=== PATIENT | male | born 1985 | race Caucasian/White ===

== ENCOUNTER 2023-10-22 00:11 | Inpatient (IN) | payer OTHER, SELFPAY ==
[2023-10-22 01:25] VITALS: BMI 26.1
[2023-10-22 01:28] VITALS: BP 135/88; PULSE 58; RESP 16; TEMP 36.9; O2SAT 96
[2023-10-22] MEDS: Ibuprofen 600 MG TABLET PO ×3 (02:06→19:06)
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
--- NOTE | 2023-10-22 06:36 | HE.PHANOTE ---
RE: METHADONE DOSING Patient has take away bottles, last methadone dose of 120 mg was given on 10/21/23. Clinic is [facility]. Verified by Bhavin on 10/22/23.
[2023-10-22 07:53] VITALS: BP 109/69; PULSE 55; RESP 14; TEMP 36.3; O2SAT 98
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
[2023-10-22] MEDS: Nicotine 21 MG PATCH.TD24 TRANSDERMA (09:25)
[2023-10-22] MEDS: methADONE HCl 20 MG/2 ML ORAL.CONC 120 MG PO (09:26)
[2023-10-22] MEDS: Acetaminophen 325 MG TABLET 650 MG PO (09:30)
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
[2023-10-22 12:07] LABS: Basophils Percent Auto 1.3 % (0-2); Eosinophils Absolute Auto 0.1 X10*3/uL (0.0-0.4); Eosinophils Percent Auto 5.9 % (0-4); Hemoglobin 12.5 g/dl (14.0-18.0); Imm Gran Abs Auto 0.01 X10*3/uL (0.00-0.03); Imm Gran Pct Auto 0.4 % (0.0-0.4); Lymphocytes Absolute Auto 0.9 X10*3/uL (1.2-4.9); Lymphocytes Percent Auto 38.1 % (20-40); MANUAL DIFF FLAG SCAN; Mean Corpuscular HGB Conc 32.9 g/dl (31.0-36.0); Mean Corpuscular Hemoglobin 30.8 pg (27.0-33.0); Mean Corpuscular Volume 93.6 fL (80.0-98.0); Monocytes Absolute Auto 0.3 X10*3/uL (0.1-1.2); Monocytes Percent Auto 10.9 % (2-11); Neutrophils Percent Auto 43.4 % (45-73); Red Blood Count 4.06 X10*6/uL (4.60-5.80); Red Cell Distribution Width 14.3 % (11.0-16.0); SCAN SMEAR FLAG 1
[2023-10-22 12:09] LABS: White Blood Count 2.4 X10*3/uL (4.8-10.8)
[2023-10-22 12:31] LABS: Mean Platelet Volume 9.6 fL (9.4-12.4); Platelet Count 72 X10*3/uL (160-400)
[2023-10-22 12:32] LABS: SLIDE REVIEW VERIFIED
[2023-10-22] MEDS: Amphetamine Mixed Salts 10 MG TABLET 30 MG PO (14:19)
[2023-10-22] MEDS: Escitalopram Oxalate 10 MG TABLET PO (18:12)
[2023-10-22 20:00] VITALS: BP 115/70; PULSE 55; RESP 16; TEMP 36.4; O2SAT 97
[2023-10-22] MEDS: QUEtiapine Fumarate 100 MG TABLET PO (23:55)
[2023-10-23 07:00] VITALS: BMI 26.2
[2023-10-23 07:46] VITALS: BP 118/69; PULSE 53; RESP 14; TEMP 36.7; O2SAT 93
[2023-10-23] MEDS: Amphetamine Mixed Salts 10 MG TABLET 30 MG PO ×2 (08:21→14:18)
[2023-10-23] MEDS: Escitalopram Oxalate 10 MG TABLET PO (08:21)
[2023-10-23 08:40] LABS: Alanine Aminotransferase 13 U/L (0-40); Alkaline Phosphatase 108 U/L (39-117); Anion Gap 8 (12-20); Aspartate Amino Transferase 32 U/L (5-37); Bilirubin Total 0.6 mg/dL (0.0-1.0); Blood Urea Nitrogen 12 mg/dL (9-16); Calcium 8.6 mg/dL (8.4-10.2); Carbon Dioxide 28 mmol/L (22-29); Chloride 110 mmol/L (96-108); Cholesterol 122 mg/dL (<200); Creatinine Clr Calc Pharmacy 162.4; Estimated Glomerular Filt Rate > 60; Glucose Fasting 187 mg/dL (60-99); HDL Cholesterol 41 mg/dL (>40); LDL Cholesterol Calculated 59 mg/dL (<100); Potassium 4.1 mmol/L (3.3-5.1); Sodium 142 mmol/L (135-145); Total Protein 6.6 g/dL (6.5-8.0); Triglycerides 112 mg/dL (<150)
[2023-10-23 09:03] LABS: HBS Num1 0.82 mIU/mL (0-7.99); HBc Num1 4.49 S/CO (0.00-0.79); ~HepC Num1 16.77 S/CO (0.00-0.79); ~Hepatitis B Surface Antibody NONREACTIVE (Nonreactive); ~Hepatitis C Antibody Reactive (Nonreactive)
[2023-10-23 09:08] LABS: HIV AB/AG Nonreactive (Nonreactive); HIV Num 1 0.06 S/CO (0.00-0.99)
[2023-10-23] MEDS: methADONE HCl 20 MG/2 ML ORAL.CONC 120 MG PO (09:43)
[2023-10-23 10:04] LABS: HBc Num2 4.25 S/CO; HBc Num3 5.38 S/CO; HBsAGNum2 Reactive; HBsAGNum3 Reactive; Hepatitis B Core Antibody Reactive (Nonreactive); Hepatitis B Surface Antigen Retest CNFM (Negative)
--- NOTE | 2023-10-23 13:26 | HO.PSYCHPN ---
Subjective Subjective Date of Service: 10/23/23 Reason For Visit: Depressive Disorder Subjective Notes: Conditional Voluntary Interim History: Reviewed with Dr. Cannon. Pt reports feeling better ; pt stated, I feel like I'm doing better than when I got here. I want to get into [facility]. If not then I would just go back to my apartment . Pt denies SI/HI/VH/AH. Medication Compliance: Yes Side effects from medications: No Review of Systems Constitutional: Reports as per HPI Eyes: Reports as per HPI Reports as per HPI Cardiovascular: Reports as per HPI Respiratory: Reports as per HPI Gastrointestinal: Reports as per HPI Genitourinary: Reports as per HPI Musculoskeletal: Reports as per HPI Skin/Breast: Reports as per HPI Reports as per HPI Psychiatric: Reports as per HPI Endocrine: Reports as per HPI Hematologic/Lymphatic: Reports as per HPI Allergic/Immunologic: Reports as per HPI Mental Status Exam Mental Status Exam Narrative: Pt is alert and oriented; behavior is cooperative and calm; dressed in casual attire; mood is described as better ; eye contact appropriate; Speech is normal rate, volume and not pressured; thought process is organized and goal directed; Thought content is on tx; otherwise pertinent to relevant topics and without any delusional content, paranoid ideations or grandiosity; denies SI/HI/VH/AH. Diagnostics Vital Signs (24Hr): Vital Signs - 24 hr 10/22/23 20:00 10/23/23 07:46 Temperature 97.6 F 98.1 F Pulse Rate 55 53 Respiratory Rate 16 14 Blood Pressure 115/70 118/69 Pulse Oximetry 97 93 Oxygen Delivery Method Room Air Room Air BMI result Body Mass Index 26.2 Labs 10/22/23 11:47 10/23/23 08:17 Labs: Laboratory Results - last 48 hr 10/22/23 10/23/23 11:47 08:17 WBC 2.4 L RBC 4.06 L Hgb 12.5 L Hct 38.0 L MCV 93.6 MCH 30.8 MCHC 32.9 RDW 14.3 Plt Count 72 L MPV 9.6 Immature Gran % (Auto) 0.4 Neut % (Auto) 43.4 L Lymph % (Auto) 38.1 [place] % (Auto) 10.9 Eos % (Auto) 5.9 H Baso % (Auto) 1.3 Lymph # (Auto) 0.9 L [place] # (Auto) 0.3 Eos # (Auto) 0.1 Baso # (Auto) 0.0 Abs Immat Gran (auto) 0.01 Absolute Neuts (auto) 1.0 L Absolute Nucleated RBC 0.000 Nucleated RBC % (auto) 0.0 Smear Tech's Comments VERIFIED Smear Path Review SEE NOTE Sodium 142 Potassium 4.1 Chloride 110 H Carbon Dioxide 28 Anion Gap 8 L BUN 12 Creatinine 0.69 Estim Creat Clear Calc 162.4 Estimated GFR > 60 Fasting Glucose 187 H Uric Acid 5.0 Calcium 8.6 Total Bilirubin 0.6 AST 32 ALT 13 Alkaline Phosphatase 108 Total Protein 6.6 Albumin 3.0 L Triglycerides 112 Cholesterol 122 LDL Cholesterol, Calc 59 HDL Cholesterol 41 Hep Bs Antigen Not Reportable Hep Bs Antibody NONREACTIVE Hep B Core Total Ab Reactive Hepatitis C Ab (EIA) Reactive H HIV 1&2 Ab/P24 Ag 4thGn Nonreactive Medications Medications Current Medications Acetaminophen (Acetaminophen 325 Mg Tablet) 650 mg PO Q6H PRN PRN Reason: Headache/Pain Mild Scale (1-3) Last Admin: 10/22/23 09:30 Dose: 650 mg Al Hydroxide/Mg Hydroxide (Magnesium Hydrox/Alum Hydrox 30 Ml Oral.Susp) 30 ml PO Q6H PRN PRN Reason: Heartburn/Nausea Amphetamine/Dextroamphetamine (Amphetamine Mixed Salts 10 Mg Tablet) 30 mg PO BID@0800,1400 [facility] Last Admin: 10/23/23 08:21 Dose: 30 mg Clonidine HCl (Clonidine Hcl 0.1 Mg Tablet) 0.1 mg PO TID PRN; Protocol PRN Reason: anxiety/restlessness Escitalopram Oxalate (Escitalopram Oxalate 10 Mg Tablet) 10 mg PO DAILY [facility] Last Admin: 10/23/23 08:21 Dose: 10 mg Hydroxyzine HCl (Hydroxyzine Hcl 25 Mg Tablet) 25 mg PO Q6H PRN PRN Reason: Anxiety Ibuprofen (Ibuprofen 600 Mg Tablet) 600 mg PO Q6H PRN PRN Reason: L ankle pain and swelling Last Admin: 10/22/23 19:06 Dose: 600 mg Magnesium Hydroxide (Milk Of Magnesia 30 Ml Oral.Susp) 30 ml PO DAILY PRN PRN Reason: Constipation Methadone HCl (Methadone Hcl 20 Mg/2 Ml Oral.Conc) 120 mg PO DAILY [facility] Last Admin: 10/23/23 09:43 Dose: 120 mg Nicotine (Nicotine 21 Mg Patch.Td24) 21 mg TRANSDERMA DAILY ALLEN Last Admin: 10/23/23 09:51 Dose: Not Given Nicotine Polacrilex (Nicotine Polacrilex 2 Mg Gum) 4 mg BUCCAL Q2H PRN PRN Reason: Nicotine Cravings Ondansetron HCl (Ondansetron Odt 8 Mg Tab.Rapdis) 8 mg TRANSLINGU Q12H PRN PRN Reason: Nausea and Vomiting Quetiapine Fumarate (Quetiapine Fumarate 100 Mg Tablet) 100 mg PO BEDTIME ALLEN Trazodone HCl (Trazodone Hcl 50 Mg Tablet) 50 mg PO BEDTIME MRX1 PRN PRN Reason: Insomnia Allergies Allergies Allergy/AdvReac Type Severity Reaction Status Date / Time No Known Allergies Allergy Verified 10/22/23 01:28 Assessment & Plan Assessment & Plan (1) MDD (major depressive disorder), recurrent episode: Status: Acute Code(s): F33.9 - Major depressive disorder, recurrent, unspecified (2) PTSD (post-traumatic stress disorder): Status: Acute Code(s): F43.10 - Post-traumatic stress disorder, unspecified (3) Cocaine use disorder: Status: Acute Code(s): F14.10 - Cocaine abuse, uncomplicated (4) Opioid abuse: Status: Acute Code(s): F11.10 - Opioid abuse, uncomplicated (5) TBI (traumatic brain injury): Status: Acute Code(s): S06.9XAA - Unspecified intracranial injury with loss of consciousness status unknown, initial encounter Plan Patient is a 38 year old male with hx of MDD, PTSD, ADHD, cocaine use d/o, and opioid use d/o, who presented to [facility] ER d/t increased depression and cocaine abuse, requesting treatment for mental health and substance abuse. Plan: CV 15 minute safety checks referral to outpatient therapist and prescriber referral to outpatient substance abuse program discharge planning Continue home medications: Methadone 120mg PO daily Adderall 30mg PO BID Start: Lexapro 10mg PO daily 10/22: Pt reports feeling better ; pt stated, I feel like I'm doing better than when I got here. I want to get into [facility]. If not then I would just go back to my apartment . Pt denies SI/HI/VH/AH. Continue current tx plan. Patient educated on: diagnosis, medication risk/benefits, substance abuse and therapeutic strategies Informed Consent: understands Reason for continued inpatient stay Substantial Risk for: med/psych decompensation Time Spent With Patient Time: Total time managing care of this patient today _20___ minutes.
[2023-10-23] MEDS: Ibuprofen 600 MG TABLET PO (14:01)
[2023-10-23 17:48] VITALS: BP 135/66; PULSE 65; RESP 16; TEMP 37.1; O2SAT 97
[2023-10-23] MEDS: QUEtiapine Fumarate 100 MG TABLET PO (20:41)
[2023-10-24 07:35] VITALS: BP 137/70; PULSE 70; RESP 14; TEMP 37; O2SAT 96
[2023-10-24] MEDS: methADONE HCl 20 MG/2 ML ORAL.CONC 120 MG PO (09:59)
[2023-10-24] MEDS: Escitalopram Oxalate 10 MG TABLET PO (10:01)
[2023-10-24] MEDS: Amphetamine Mixed Salts 10 MG TABLET 30 MG PO ×2 (10:01→16:22)
--- NOTE | 2023-10-24 13:08 | HO.PSYCHPN ---
Subjective Subjective Date of Service: 10/24/23 Reason For Visit: Depressive Disorder Subjective Notes: Conditional Voluntary Interim History: Reviewed with Dr. Cannon. Pt reports feeling alright today; pt stated, I'm having a little depression because I miss my kids. I'm just hoping to get into a program . Pt reports sleeping and eating well. Pt denies SI/HI/VH/AH. Waiting to hear back from [facility]. Medication Compliance: Yes Side effects from medications: No Review of Systems Constitutional: Reports as per HPI Eyes: Reports as per HPI Reports as per HPI Cardiovascular: Reports as per HPI Respiratory: Reports as per HPI Gastrointestinal: Reports as per HPI Genitourinary: Reports as per HPI Musculoskeletal: Reports as per HPI Skin/Breast: Reports as per HPI Reports as per HPI Psychiatric: Reports as per HPI Endocrine: Reports as per HPI Hematologic/Lymphatic: Reports as per HPI Allergic/Immunologic: Reports as per HPI Mental Status Exam Mental Status Exam Narrative: Pt is alert and oriented; behavior is cooperative and calm; dressed in casual attire; mood is described as better ; eye contact appropriate; Speech is normal rate, volume and not pressured; thought process is organized and goal directed; Thought content is on tx; otherwise pertinent to relevant topics and without any delusional content, paranoid ideations or grandiosity; denies SI/HI/VH/AH. Diagnostics Vital Signs (24Hr): Vital Signs - 24 hr 10/23/23 17:48 10/24/23 07:35 Temperature 98.7 F 98.6 F Pulse Rate 65 70 Respiratory Rate 16 14 Blood Pressure 135/66 137/70 Pulse Oximetry 97 96 Oxygen Delivery Method Room Air Room Air BMI result Body Mass Index 26.2 Labs 10/22/23 11:47 10/23/23 08:17 Labs: Laboratory Results - last 48 hr 10/23/23 08:17 Sodium 142 Potassium 4.1 Chloride 110 H Carbon Dioxide 28 Anion Gap 8 L BUN 12 Creatinine 0.69 Estim Creat Clear Calc 162.4 Estimated GFR > 60 Fasting Glucose 187 H Calcium 8.6 Total Bilirubin 0.6 AST 32 ALT 13 Alkaline Phosphatase 108 Total Protein 6.6 Albumin 3.0 L Triglycerides 112 Cholesterol 122 LDL Cholesterol, Calc 59 HDL Cholesterol 41 Hep Bs Antigen Not Reportable Hep Bs Antibody NONREACTIVE Hep B Core Total Ab Reactive Hepatitis C Ab (EIA) Reactive H HIV 1&2 Ab/P24 Ag 4thGn Nonreactive Medications Medications Current Medications Acetaminophen (Acetaminophen 325 Mg Tablet) 650 mg PO Q6H PRN PRN Reason: Headache/Pain Mild Scale (1-3) Last Admin: 10/22/23 09:30 Dose: 650 mg Al Hydroxide/Mg Hydroxide (Magnesium Hydrox/Alum Hydrox 30 Ml Oral.Susp) 30 ml PO Q6H PRN PRN Reason: Heartburn/Nausea Amphetamine/Dextroamphetamine (Amphetamine Mixed Salts 10 Mg Tablet) 30 mg PO BID@0800,1400 [facility] Last Admin: 10/24/23 10:01 Dose: 30 mg Clonidine HCl (Clonidine Hcl 0.1 Mg Tablet) 0.1 mg PO TID PRN; Protocol PRN Reason: anxiety/restlessness Escitalopram Oxalate (Escitalopram Oxalate 10 Mg Tablet) 10 mg PO DAILY [facility] Last Admin: 10/24/23 10:01 Dose: 10 mg Hydroxyzine HCl (Hydroxyzine Hcl 25 Mg Tablet) 25 mg PO Q6H PRN PRN Reason: Anxiety Ibuprofen (Ibuprofen 600 Mg Tablet) 600 mg PO Q6H PRN PRN Reason: L ankle pain and swelling Last Admin: 10/23/23 14:01 Dose: 600 mg Magnesium Hydroxide (Milk Of Magnesia 30 Ml Oral.Susp) 30 ml PO DAILY PRN PRN Reason: Constipation Methadone HCl (Methadone Hcl 20 Mg/2 Ml Oral.Conc) 120 mg PO DAILY [facility] Last Admin: 10/24/23 09:59 Dose: 120 mg Nicotine (Nicotine 21 Mg Patch.Td24) 21 mg TRANSDERMA DAILY [facility] Last Admin: 10/24/23 10:02 Dose: Not Given Nicotine Polacrilex (Nicotine Polacrilex 2 Mg Gum) 4 mg BUCCAL Q2H PRN PRN Reason: Nicotine Cravings Ondansetron HCl (Ondansetron Odt 8 Mg Tab.Rapdis) 8 mg TRANSLINGU Q12H PRN PRN Reason: Nausea and Vomiting Quetiapine Fumarate (Quetiapine Fumarate 100 Mg Tablet) 100 mg PO BEDTIME [facility] Last Admin: 10/23/23 20:41 Dose: 100 mg Trazodone HCl (Trazodone Hcl 50 Mg Tablet) 50 mg PO BEDTIME MRX1 PRN PRN Reason: Insomnia Allergies Allergies Allergy/AdvReac Type Severity Reaction Status Date / Time No Known Allergies Allergy Verified 10/22/23 01:28 Assessment & Plan Assessment & Plan (1) MDD (major depressive disorder), recurrent episode: Status: Acute Code(s): F33.9 - Major depressive disorder, recurrent, unspecified (2) PTSD (post-traumatic stress disorder): Status: Acute Code(s): F43.10 - Post-traumatic stress disorder, unspecified (3) Cocaine use disorder: Status: Acute Code(s): F14.10 - Cocaine abuse, uncomplicated (4) Opioid abuse: Status: Acute Code(s): F11.10 - Opioid abuse, uncomplicated (5) TBI (traumatic brain injury): Status: Acute Code(s): S06.9XAA - Unspecified intracranial injury with loss of consciousness status unknown, initial encounter Plan Patient is a 38 year old male with hx of MDD, PTSD, ADHD, cocaine use d/o, and opioid use d/o, who presented to [facility] ER d/t increased depression and cocaine abuse, requesting treatment for mental health and substance abuse. Plan: CV 15 minute safety checks referral to outpatient therapist and prescriber referral to outpatient substance abuse program discharge planning Continue home medications: Methadone 120mg PO daily Adderall 30mg PO BID Start: Lexapro 10mg PO daily 10/22: Pt reports feeling better ; pt stated, I feel like I'm doing better than when I got here. I want to get into [facility]. If not then I would just go back to my apartment . Pt denies SI/HI/VH/AH. Continue current tx plan. 10/23: Pt reports feeling alright today; pt stated, I'm having a little depression because I miss my kids. I'm just hoping to get into a program . Pt reports sleeping and eating well. Pt denies SI/HI/VH/AH. Waiting to hear back from [facility]. Continue current tx plan. Patient educated on: diagnosis, medication risk/benefits, substance abuse and therapeutic strategies Informed Consent: understands Reason for continued inpatient stay Substantial Risk for: med/psych decompensation Time Spent With Patient Time: Total time managing care of this patient today _20___ minutes.
[2023-10-24 19:25] VITALS: BP 160/93; PULSE 66; RESP 18; TEMP 36.7; O2SAT 96
[2023-10-24 19:44] LABS: Hepatitis B Core Antibody IgM NON-REACTIVE (NON-REACTIVE)
[2023-10-25] MEDS: Amphetamine Mixed Salts 10 MG TABLET 30 MG PO ×2 (07:01→14:20)
[2023-10-25] MEDS: Ibuprofen 600 MG TABLET PO ×2 (07:21→20:13)
[2023-10-25 07:37] VITALS: BP 151/86; PULSE 64; RESP 16; TEMP 36.8; O2SAT 100
[2023-10-25] MEDS: methADONE HCl 20 MG/2 ML ORAL.CONC 120 MG PO (08:29)
[2023-10-25] MEDS: Escitalopram Oxalate 10 MG TABLET PO (08:31)
[2023-10-25 15:34] LABS: HCV Log PCR <1.18 NOT DETECTED Log IU/mL (NOT DETECTED); HepC Viral Load <15 NOT DETECTED IU/mL (NOT DETECTED)
--- NOTE | 2023-10-25 16:46 | HO.PSYCHPN ---
Subjective Subjective Date of Service: 10/25/23 Reason For Visit: Depressive Disorder Interim History: review h/o ankle eval, hospitalist recs reviewed with pt. awaiting bed at program. no changes. per staff, dep 6 anx 8. restless, wants a program. eves looked sedated, c/o belly ache. TEDs were provided for left ankle swelling. Mental Status Exam Mental Status Exam Narrative: Pt is alert and oriented; behavior is cooperative and calm; dressed in casual attire; mood is described as better ; eye contact appropriate; Speech is normal rate, volume and not pressured; thought process is organized and goal directed; Thought content is on tx; otherwise pertinent to relevant topics and without any delusional content, paranoid ideations or grandiosity; denies SI/HI/VH/AH. Diagnostics Vital Signs (24Hr): Vital Signs - 24 hr 10/24/23 19:25 10/25/23 07:37 Temperature 98.0 F 98.3 F Pulse Rate 66 64 Respiratory Rate 18 16 Blood Pressure 160/93 H 151/86 H Pulse Oximetry 96 100 Oxygen Delivery Method Room Air Room Air BMI result Body Mass Index 26.2 Labs 10/22/23 11:47 10/23/23 08:17 Labs: Laboratory Results - last 48 hr 10/23/23 08:17 Hep Bs Antigen REACTIVE (Abnormal) Hep Bs Ag Confirmation TNP Hep B Core IgM Ab NON-REACTIVE Hep C Viral Load <15 NOT DETECTED Hep C Viral Load Log <1.18 NOT DETECTED Medications Medications Current Medications Acetaminophen (Acetaminophen 325 Mg Tablet) 650 mg PO Q6H PRN PRN Reason: Headache/Pain Mild Scale (1-3) Last Admin: 10/22/23 09:30 Dose: 650 mg Al Hydroxide/Mg Hydroxide (Magnesium Hydrox/Alum Hydrox 30 Ml Oral.Susp) 30 ml PO Q6H PRN PRN Reason: Heartburn/Nausea Amphetamine/Dextroamphetamine (Amphetamine Mixed Salts 10 Mg Tablet) 30 mg PO BID@0800,1400 [facility] Last Admin: 10/25/23 14:20 Dose: 30 mg Clonidine HCl (Clonidine Hcl 0.1 Mg Tablet) 0.1 mg PO TID PRN; Protocol PRN Reason: anxiety/restlessness Escitalopram Oxalate (Escitalopram Oxalate 10 Mg Tablet) 10 mg PO DAILY [facility] Last Admin: 10/25/23 08:31 Dose: 10 mg Hydroxyzine HCl (Hydroxyzine Hcl 25 Mg Tablet) 25 mg PO Q6H PRN PRN Reason: Anxiety Ibuprofen (Ibuprofen 600 Mg Tablet) 600 mg PO Q6H PRN PRN Reason: L ankle pain and swelling Last Admin: 10/25/23 07:21 Dose: 600 mg Magnesium Hydroxide (Milk Of Magnesia 30 Ml Oral.Susp) 30 ml PO DAILY PRN PRN Reason: Constipation Methadone HCl (Methadone Hcl 20 Mg/2 Ml Oral.Conc) 120 mg PO DAILY [facility] Last Admin: 10/25/23 08:29 Dose: 120 mg Nicotine (Nicotine 21 Mg Patch.Td24) 21 mg TRANSDERMA DAILY [facility] Last Admin: 10/25/23 08:31 Dose: Not Given Nicotine Polacrilex (Nicotine Polacrilex 2 Mg Gum) 4 mg BUCCAL Q2H PRN PRN Reason: Nicotine Cravings Ondansetron HCl (Ondansetron Odt 8 Mg Tab.Rapdis) 8 mg TRANSLINGU Q12H PRN PRN Reason: Nausea and Vomiting Quetiapine Fumarate (Quetiapine Fumarate 100 Mg Tablet) 100 mg PO BEDTIME [facility] Last Admin: 10/24/23 22:20 Dose: Not Given Trazodone HCl (Trazodone Hcl 50 Mg Tablet) 50 mg PO BEDTIME MRX1 PRN PRN Reason: Insomnia Allergies Allergies Allergy/AdvReac Type Severity Reaction Status Date / Time No Known Allergies Allergy Verified 10/22/23 01:28 Assessment & Plan Assessment & Plan (1) MDD (major depressive disorder), recurrent episode: Status: Acute Code(s): F33.9 - Major depressive disorder, recurrent, unspecified (2) PTSD (post-traumatic stress disorder): Status: Acute Code(s): F43.10 - Post-traumatic stress disorder, unspecified (3) Cocaine use disorder: Status: Acute Code(s): F14.10 - Cocaine abuse, uncomplicated (4) Opioid abuse: Status: Acute Code(s): F11.10 - Opioid abuse, uncomplicated (5) TBI (traumatic brain injury): Status: Acute Code(s): S06.9XAA - Unspecified intracranial injury with loss of consciousness status unknown, initial encounter Plan Patient is a 38 year old male with hx of MDD, PTSD, ADHD, cocaine use d/o, and opioid use d/o, who presented to [facility] ER d/t increased depression and cocaine abuse, requesting treatment for mental health and substance abuse. Plan: CV 15 minute safety checks referral to outpatient therapist and prescriber referral to outpatient substance abuse program discharge planning Continue home medications: Methadone 120mg PO daily Adderall 30mg PO BID Start: Lexapro 10mg PO daily 10/22: Pt reports feeling better ; pt stated, I feel like I'm doing better than when I got here. I want to get into [facility]. If not then I would just go back to my apartment . Pt denies SI/HI/VH/AH. Continue current tx plan. 10/23: Pt reports feeling alright today; pt stated, I'm having a little depression because I miss my kids. I'm just hoping to get into a program . Pt reports sleeping and eating well. Pt denies SI/HI/VH/AH. Waiting to hear back from [facility]. Continue current tx plan. 10/24: awaiting bed at program. stable. continue current mgmt. Reason for continued inpatient stay Substantial Risk for: inability to function and rapid decompensation Time Spent With Patient Time: Total time managing care of this patient today ____ minutes.
[2023-10-25 19:40] VITALS: BP 171/93; PULSE 72; RESP 16; TEMP 36.7; O2SAT 100
[2023-10-26 07:40] VITALS: BP 158/91; PULSE 60; RESP 14; TEMP 36.4; O2SAT 98
[2023-10-26] MEDS: Amphetamine Mixed Salts 10 MG TABLET 30 MG PO ×2 (08:20→14:00)
[2023-10-26] MEDS: Escitalopram Oxalate 10 MG TABLET PO (08:21)
[2023-10-26] MEDS: methADONE HCl 20 MG/2 ML ORAL.CONC 120 MG PO (09:34)
--- NOTE | 2023-10-26 15:11 | P.PNPSI_ITS ---
Subjective Subjective Date of Service: 10/26/23 Reason For Visit: Depressive Disorder Interim History: states he is feeling fine. slept well without seroquel. no questions or concerns for MD. per staff, dep 8 anx 10. taking meds. refused HS seroquel. slept in sensory room 2/2 snoring roommate. Mental Status Exam Mental Status Exam Narrative: Pt is alert and oriented; behavior is cooperative and calm; dressed in casual attire; mood is described as better ; eye contact appropriate; Speech is normal rate, volume and not pressured; thought process is organized and goal directed; Thought content is on tx; otherwise pertinent to relevant topics and without any delusional content, paranoid ideations or grandiosity; denies SI/HI/VH/AH. Diagnostics Vital Signs (24Hr): Vital Signs - 24 hr 10/25/23 19:40 10/26/23 07:40 Temperature 98.1 F 97.6 F Pulse Rate 72 60 Respiratory Rate 16 14 Blood Pressure 171/93 H 158/91 H Pulse Oximetry 100 98 Oxygen Delivery Method Room Air Room Air BMI result Body Mass Index 26.2 Labs 10/22/23 11:47 10/23/23 08:17 Labs: Laboratory Results - last 48 hr 10/23/23 08:17 Hep Bs Antigen REACTIVE (Abnormal) Hep Bs Ag Confirmation TNP Hep B Core IgM Ab NON-REACTIVE Hep C Viral Load <15 NOT DETECTED Hep C Viral Load Log <1.18 NOT DETECTED Medications Medications Current Medications Acetaminophen (Acetaminophen 325 Mg Tablet) 650 mg PO Q6H PRN PRN Reason: Headache/Pain Mild Scale (1-3) Last Admin: 10/22/23 09:30 Dose: 650 mg Al Hydroxide/Mg Hydroxide (Magnesium Hydrox/Alum Hydrox 30 Ml Oral.Susp) 30 ml PO Q6H PRN PRN Reason: Heartburn/Nausea Amphetamine/Dextroamphetamine (Amphetamine Mixed Salts 10 Mg Tablet) 30 mg PO BID@0800,1400 [facility] Last Admin: 10/26/23 14:00 Dose: 30 mg Clonidine HCl (Clonidine Hcl 0.1 Mg Tablet) 0.1 mg PO TID PRN; Protocol PRN Reason: anxiety/restlessness Escitalopram Oxalate (Escitalopram Oxalate 10 Mg Tablet) 10 mg PO DAILY [facility] Last Admin: 10/26/23 08:21 Dose: 10 mg Hydroxyzine HCl (Hydroxyzine Hcl 25 Mg Tablet) 25 mg PO Q6H PRN PRN Reason: Anxiety Ibuprofen (Ibuprofen 600 Mg Tablet) 600 mg PO Q6H PRN PRN Reason: L ankle pain and swelling Last Admin: 10/25/23 20:13 Dose: 600 mg Magnesium Hydroxide (Milk Of Magnesia 30 Ml Oral.Susp) 30 ml PO DAILY PRN PRN Reason: Constipation Methadone HCl (Methadone Hcl 20 Mg/2 Ml Oral.Conc) 120 mg PO DAILY [facility] Last Admin: 10/26/23 09:34 Dose: 120 mg Nicotine (Nicotine 21 Mg Patch.Td24) 21 mg TRANSDERMA DAILY [facility] Last Admin: 10/26/23 08:22 Dose: Not Given Nicotine Polacrilex (Nicotine Polacrilex 2 Mg Gum) 4 mg BUCCAL Q2H PRN PRN Reason: Nicotine Cravings Ondansetron HCl (Ondansetron Odt 8 Mg Tab.Rapdis) 8 mg TRANSLINGU Q12H PRN PRN Reason: Nausea and Vomiting Quetiapine Fumarate (Quetiapine Fumarate 100 Mg Tablet) 100 mg PO BEDTIME [facility] Last Admin: 10/25/23 21:52 Dose: Not Given Trazodone HCl (Trazodone Hcl 50 Mg Tablet) 50 mg PO BEDTIME MRX1 PRN PRN Reason: Insomnia Allergies Allergies Allergy/AdvReac Type Severity Reaction Status Date / Time No Known Allergies Allergy Verified 10/22/23 01:28 Assessment & Plan Assessment & Plan (1) MDD (major depressive disorder), recurrent episode: Status: Acute Code(s): F33.9 - Major depressive disorder, recurrent, unspecified (2) PTSD (post-traumatic stress disorder): Status: Acute Code(s): F43.10 - Post-traumatic stress disorder, unspecified (3) Cocaine use disorder: Status: Acute Code(s): F14.10 - Cocaine abuse, uncomplicated (4) Opioid abuse: Status: Acute Code(s): F11.10 - Opioid abuse, uncomplicated (5) TBI (traumatic brain injury): Status: Acute Code(s): S06.9XAA - Unspecified intracranial injury with loss of consciousness status unknown, initial encounter Plan Patient is a 38 year old male with hx of MDD, PTSD, ADHD, cocaine use d/o, and opioid use d/o, who presented to [facility] ER d/t increased depression and cocaine abuse, requesting treatment for mental health and substance abuse. Plan: CV 15 minute safety checks referral to outpatient therapist and prescriber referral to outpatient substance abuse program discharge planning Continue home medications: Methadone 120mg PO daily Adderall 30mg PO BID Start: Lexapro 10mg PO daily 10/22: Pt reports feeling better ; pt stated, I feel like I'm doing better than when I got here. I want to get into [facility]. If not then I would just go back to my apartment . Pt denies SI/HI/VH/AH. Continue current tx plan. 10/23: Pt reports feeling alright today; pt stated, I'm having a little depression because I miss my kids. I'm just hoping to get into a program . Pt reports sleeping and eating well. Pt denies SI/HI/VH/AH. Waiting to hear back from [facility]. Continue current tx plan. 10/24: awaiting bed at program. stable. continue current mgmt. 10/25: appears to be feeling quite well. slept fine without HS seroquel. continue current mgmt. Reason for continued inpatient stay Substantial Risk for: inability to function Time Spent With Patient Time: Total time managing care of this patient today ____ minutes.
[2023-10-26 20:00] VITALS: BP 150/88; PULSE 67; RESP 16; TEMP 37; O2SAT 99
[2023-10-26] MEDS: Acetaminophen 325 MG TABLET 650 MG PO (22:12)
[2023-10-26] MEDS: Ibuprofen 600 MG TABLET PO (22:12)
[2023-10-27 08:00] VITALS: BP 137/89; PULSE 66; RESP 16; TEMP 36.6; O2SAT 96
[2023-10-27] MEDS: Amphetamine Mixed Salts 10 MG TABLET 30 MG PO ×2 (09:08→14:44)
[2023-10-27] MEDS: Escitalopram Oxalate 10 MG TABLET PO (09:08)
[2023-10-27] MEDS: methADONE HCl 20 MG/2 ML ORAL.CONC 120 MG PO (10:37)
--- NOTE | 2023-10-27 16:03 | P.PNPSI_ITS ---
Subjective Subjective Date of Service: 10/27/23 Reason For Visit: Depressive Disorder Subjective Notes: Conditional Voluntary Interim History: Reviewed with Dr. Cannon. Pt reports feeling good but anxious today; pt stated, I'm waiting to go to a program but I won't go if I can't get my clothes from this guys house . Pt educated regarding many programs want pt's to go directly from inpatient to their program; pt stated, then fuck those programs because I want my clothes. That's all I have. I'm not going to go to a program that won't let me to get my stuff. I'll leave and come back . Pt reports sleeping well. denies SI/HI/VH/AH. Social work continues to work on placement. Medication Compliance: Yes Side effects from medications: No Attending Groups: Intermittent Review of Systems Constitutional: Reports as per HPI Eyes: Reports as per HPI Reports as per HPI Cardiovascular: Reports as per HPI Respiratory: Reports as per HPI Gastrointestinal: Reports as per HPI Genitourinary: Reports as per HPI Musculoskeletal: Reports as per HPI Skin/Breast: Reports as per HPI Reports as per HPI Psychiatric: Reports as per HPI Endocrine: Reports as per HPI Hematologic/Lymphatic: Reports as per HPI Allergic/Immunologic: Reports as per HPI Mental Status Exam Mental Status Exam Narrative: Pt is alert and oriented; behavior is cooperative, irritated; dressed in hospital attire; mood is described as good ; eye contact appropriate; Speech is normal rate, volume and not pressured; thought process is organized and goal directed; Thought content is on tx and his clothing; otherwise pertinent to relevant topics and without any delusional content, paranoid ideations or grandiosity; denies SI/HI/VH/AH. Diagnostics Vital Signs (24Hr): Vital Signs - 24 hr 10/26/23 20:00 10/27/23 08:00 Temperature 98.6 F 97.8 F Pulse Rate 67 66 Respiratory Rate 16 16 Blood Pressure 150/88 H 137/89 Pulse Oximetry 99 96 Oxygen Delivery Method Room Air Room Air BMI result Body Mass Index 26.2 Labs 10/22/23 11:47 10/23/23 08:17 Medications Medications Current Medications Acetaminophen (Acetaminophen 325 Mg Tablet) 650 mg PO Q6H PRN PRN Reason: Headache/Pain Mild Scale (1-3) Last Admin: 10/26/23 22:12 Dose: 650 mg Al Hydroxide/Mg Hydroxide (Magnesium Hydrox/Alum Hydrox 30 Ml Oral.Susp) 30 ml PO Q6H PRN PRN Reason: Heartburn/Nausea Amphetamine/Dextroamphetamine (Amphetamine Mixed Salts 10 Mg Tablet) 30 mg PO BID@0800,1400 [facility] Last Admin: 10/27/23 14:44 Dose: 30 mg Clonidine HCl (Clonidine Hcl 0.1 Mg Tablet) 0.1 mg PO TID PRN; Protocol PRN Reason: anxiety/restlessness Escitalopram Oxalate (Escitalopram Oxalate 10 Mg Tablet) 10 mg PO DAILY [facility] Last Admin: 10/27/23 09:08 Dose: 10 mg Hydroxyzine HCl (Hydroxyzine Hcl 25 Mg Tablet) 25 mg PO Q6H PRN PRN Reason: Anxiety Ibuprofen (Ibuprofen 600 Mg Tablet) 600 mg PO Q6H PRN PRN Reason: L ankle pain and swelling Last Admin: 10/26/23 22:12 Dose: 600 mg Magnesium Hydroxide (Milk Of Magnesia 30 Ml Oral.Susp) 30 ml PO DAILY PRN PRN Reason: Constipation Methadone HCl (Methadone Hcl 20 Mg/2 Ml Oral.Conc) 120 mg PO DAILY [facility] Last Admin: 10/27/23 10:37 Dose: 120 mg Nicotine (Nicotine 21 Mg Patch.Td24) 21 mg TRANSDERMA DAILY [facility] Last Admin: 10/27/23 09:08 Dose: Not Given Nicotine Polacrilex (Nicotine Polacrilex 2 Mg Gum) 4 mg BUCCAL Q2H PRN PRN Reason: Nicotine Cravings Ondansetron HCl (Ondansetron Odt 8 Mg Tab.Rapdis) 8 mg TRANSLINGU Q12H PRN PRN Reason: Nausea and Vomiting Quetiapine Fumarate (Quetiapine Fumarate 100 Mg Tablet) 100 mg PO BEDTIME [facility] Last Admin: 10/26/23 20:26 Dose: Not Given Trazodone HCl (Trazodone Hcl 50 Mg Tablet) 50 mg PO BEDTIME MRX1 PRN PRN Reason: Insomnia Allergies Allergies Allergy/AdvReac Type Severity Reaction Status Date / Time No Known Allergies Allergy Verified 10/22/23 01:28 Assessment & Plan Assessment & Plan (1) MDD (major depressive disorder), recurrent episode: Status: Acute Code(s): F33.9 - Major depressive disorder, recurrent, unspecified (2) PTSD (post-traumatic stress disorder): Status: Acute Code(s): F43.10 - Post-traumatic stress disorder, unspecified (3) Cocaine use disorder: Status: Acute Code(s): F14.10 - Cocaine abuse, uncomplicated (4) Opioid abuse: Status: Acute Code(s): F11.10 - Opioid abuse, uncomplicated (5) TBI (traumatic brain injury): Status: Acute Code(s): S06.9XAA - Unspecified intracranial injury with loss of consciousness status unknown, initial encounter Plan Patient is a 38 year old male with hx of MDD, PTSD, ADHD, cocaine use d/o, and opioid use d/o, who presented to [facility] ER d/t increased depression and cocaine abuse, requesting treatment for mental health and substance abuse. Plan: CV 15 minute safety checks referral to outpatient therapist and prescriber referral to outpatient substance abuse program discharge planning Continue home medications: Methadone 120mg PO daily Adderall 30mg PO BID Start: Lexapro 10mg PO daily 10/22: Pt reports feeling better ; pt stated, I feel like I'm doing better than when I got here. I want to get into [facility]. If not then I would just go back to my apartment . Pt denies SI/HI/VH/AH. Continue current tx plan. 10/23: Pt reports feeling alright today; pt stated, I'm having a little depression because I miss my kids. I'm just hoping to get into a program . Pt reports sleeping and eating well. Pt denies SI/HI/VH/AH. Waiting to hear back from [facility]. Continue current tx plan. 10/24: awaiting bed at program. stable. continue current mgmt. 10/25: appears to be feeling quite well. slept fine without HS seroquel. continue current mgmt. 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 Pt reports feeling good but anxious today; pt stated, I'm waiting to go to a program but I won't go if I can't get my clothes from this guys house . Pt educated regarding many programs want pt's to go directly from inpatient to their program; pt stated, then fuck those programs because I want my clothes. That's all I have. I'm not going to go to a program that won't let me to get my stuff. I'll leave and come back . Pt reports sleeping well. denies SI/HI/VH/AH. Social work continues to work on placement. Continue current tx plan. Plan for discharge this week. Patient educated on: diagnosis, medication risk/benefits, substance abuse and therapeutic strategies Informed Consent: understands Reason for continued inpatient stay Substantial Risk for: med/psych decompensation Time Spent With Patient Time: Total time managing care of this patient today _20___ minutes.
[2023-10-27 20:00] VITALS: BP 137/82; PULSE 68; RESP 16; TEMP 37.1; O2SAT 97
[2023-10-28] MEDS: Amphetamine Mixed Salts 10 MG TABLET 30 MG PO (06:59)
[2023-10-28 07:10] VITALS: BP 136/81; PULSE 64; RESP 16; TEMP 36.8; O2SAT 100
[2023-10-28] MEDS: methADONE HCl 20 MG/2 ML ORAL.CONC 120 MG PO (08:52)
[2023-10-28] MEDS: Escitalopram Oxalate 10 MG TABLET PO (08:54)
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
== END 2023-10-28 10:49 | disposition home or self-care (01) | DRG 751 ==
PROVIDERS: Physician Assistant; Admitting Provider Psychiatry & Neurology Psychiatry; Responsible Provider Registered Nurse; Visit Provider Psychiatry & Neurology Psychiatry
DX: F33.9 Major depressive disorder, recurrent, unspecified (principal); F11.20 Opioid dependence, uncomplicated; F19.10 Other psychoactive substance abuse, uncomplicated; F14.10 Cocaine abuse, uncomplicated; F17.210 Nicotine dependence, cigarettes, uncomplicated; Z71.6 Tobacco abuse counseling; F90.9 Attention-deficit hyperactivity disorder, unspecified type; F43.10 Post-traumatic stress disorder, unspecified; Z87.820 Personal history of traumatic brain injury; Z79.899 Other long term (current) drug therapy
CPT/HCPCS: 36415; 80053; 80061; 84550; 85025; 86704; 86705; 86706; 86803; 87340; 87389; 87522

== ENCOUNTER → 2023-10-22 00:11 | Outpatient (BNV) | payer OTHER, SELFPAY | PROVIDERS: Admitting Provider Psychiatry & Neurology Psychiatry; Responsible Provider Registered Nurse; Visit Provider Physician Assistant | DX: S96.912A Strain of unspecified muscle and tendon at ankle and foot level, left foot, initial encounter (principal) | CPT/HCPCS: 99222 ==

== ENCOUNTER → 2023-10-22 00:11 | Outpatient (BNV) | payer OTHER, SELFPAY | PROVIDERS: Admitting Provider Psychiatry & Neurology Psychiatry; Responsible Provider Registered Nurse; Visit Provider Registered Nurse | DX: F33.2 Major depressive disorder, recurrent severe without psychotic features (principal); F14.10 Cocaine abuse, uncomplicated; F11.10 Opioid abuse, uncomplicated; F43.11 Post-traumatic stress disorder, acute; S06.9XAA Unspecified intracranial injury with loss of consciousness status unknown, initial encounter | CPT/HCPCS: 99231; 99233 ==

== ENCOUNTER 2023-10-28 14:27 | Emergency (ER) | payer OTHER, SELFPAY ==
[2023-10-28 14:46] VITALS: BP 135/80; BP 141/91; PULSE 68; PULSE 73; RESP 20; TEMP 36.3; O2SAT 94; O2SAT 96; BMI 28.7
--- NOTE | 2023-10-28 15:12 | PC.NURSE ---
Addendum entered by Silva Awad RN 10/28/23 15:15: talked to charge nurse, she states this is not the case. patient belongings placed in closet in decon due to having 2 large suitcases, 3 duffel bags. Original Note: patient changed into hospital attire by security, has been calm and cooperative during ER stay. patient states that he was told by the staff on m3 to go home and get his belongings so he can be placed in a program. called staff on m3 and shaniced to pierre
[2023-10-28 15:29] LABS: MANUAL DIFF FLAG NO
[2023-10-28 15:30] LABS: Basophils Absolute Auto 0.1 X10*3/uL (0.0-0.2); Basophils Percent Auto 1.2 % (0-2); Eosinophils Absolute Auto 0.2 X10*3/uL (0.0-0.4); Eosinophils Percent Auto 4.4 % (0-4); Hematocrit 41.3 % (42.0-52.0); Hemoglobin 13.8 g/dl (14.0-18.0); Imm Gran Abs Auto 0.02 X10*3/uL (0.00-0.03); Imm Gran Pct Auto 0.5 % (0.0-0.4); Lymphocytes Absolute Auto 1.5 X10*3/uL (1.2-4.9); Mean Corpuscular HGB Conc 33.4 g/dl (31.0-36.0); Mean Corpuscular Hemoglobin 30.9 pg (27.0-33.0); Mean Corpuscular Volume 92.4 fL (80.0-98.0); Mean Platelet Volume 9.5 fL (9.4-12.4); Monocytes Absolute Auto 0.4 X10*3/uL (0.1-1.2); Monocytes Percent Auto 8.3 % (2-11); Neutrophils Absolute Auto 2.2 x10*3/uL (2.0-8.3); Neutrophils Percent Auto 51.6 % (45-73); Platelet Count 100 X10*3/uL (160-400); Red Blood Count 4.47 X10*6/uL (4.60-5.80); Red Cell Distribution Width 14.1 % (11.0-16.0); White Blood Count 4.3 X10*3/uL (4.8-10.8)
[2023-10-28 15:42] LABS: Amphetamine Screen Urine POSITIVE (Not Detect); Barbiturates, Urine Not Detected (Not Detect); Benzodiazepines Screen Urine Not Detected (Not Detect); Buprenorphine Scr Not Detected (Not Detect); Cannabinoid Screen Urine POSITIVE (Not Detect); Cocaine Screen Urine Not Detected (Not Detect); Fentanyl, urine POSITIVE (Not Detect); Methadone Screen, Urine Positive (Not Detect); Opiate Screen Urine Not Detected (Not Detect); Oxycodone Screen Urine Not Detected (Not Detect); Phencyclidine Screen Urine Not Detected (Not Detect)
[2023-10-28 15:46] LABS: Appearance Urine Clear; Glucose Urine UA Negative (Negative); Leukocyte Esterase Urine Negative (Negative); Nitrite Urine Negative (Negative); Specific Gravity - Urine 1.025 (1.005-1.025); Urine Blood Negative (Negative); Urine Ketones Trace mg/dL (Negative); Urine Protein Negative (Neg-Trace)
--- NOTE | 2023-10-28 15:52 | ED_ITS ---
HPI - General Adult General Chief complaint: Psychiatric Symptoms Stated complaint: DEPRESSED,DOES NOT WANT TO HARM SELF PER EMS Time Seen by Provider: 10/28/23 15:52 History of Present Illness ED Provider: Varun Vaughan HPI narrative: Patient is a 38-year-old male who says that he has a history of a traumatic brain injury in 2014. He also says that he has a history of PTSD, depression, and substance use disorder. The patient was recently admitted to our psychiatric unit on October 21 after 1st presenting to [facility]. He was discharged earlier this morning. Apparently arrangements has been made for him to be admitted to the [facility] for inpatient treatment. He said that he wanted to get some of his own clothes before going to an inpatient facility. He was told this would not be possible and he was given the option of going to the inpatient facility are being discharged. The patient was discharged and went home (a friend's house where his things were) and now he returns hoping to get back with the plan of going to an inpatient facility. He denies using any drugs since leaving the hospital earlier this morning. He says that he has been on his usual Adderall and his usual methadone. When I asked him why he might be testing positive for fentanyl he said that that could only be because he had it in his system from before his admission earlier. He says he took this nasally and not intravenously. He denies using any drugs since leaving the hospital. He denies any fever, sweats, chills or other medical symptoms. Says that he continues to feel depressed although he is not distinctly homicidal or suicidal. He very much wants to get better. Related Data Home Medications ?Medication ?Instructions ?Recorded ?Confirmed dextroamphetamine-amphetamine 30 30 mg PO BID 10/22/23 10/22/23 mg tablet (Adderall) methadone 10 mg/5 mL oral solution 120 mg PO DAILY 10/22/23 10/22/23 Previous Rx's ?Medication ?Instructions ?Recorded escitalopram oxalate 10 mg tablet 10 mg PO DAILY 30 days #30 tabs 10/28/23 quetiapine 100 mg tablet 100 mg PO BEDTIME 30 days #30 tabs 10/28/23 Allergies Allergy/AdvReac Type Severity Reaction Status Date / Time No Known Allergies Allergy Verified 10/28/23 14:49 Review of Systems 2 Review of Systems: Yes all other systems are reviewed and are negative [facility] Past Medical History Medical History (Updated 10/28/23 @ 16:19 by Varun Vaughan MD) Polysubstance abuse TBI (traumatic brain injury) Surgical History History of back surgery Social History Social History Household Members: Friend(s) Housing: Apartment Do you presently have visiting nurse or other home services: No Patient Tobacco Use Status: Current everyday Tobacco user Tobacco use type: Cigarette Smoked in Last 30 Days: No e-Cigarette/Vaping Use: Never Used Second Hand Smoke Exposure: No Use of substances other than those prescribed or required for medical reasons: No Substance Use Type: Amphetamines, Crack/Cocaine and Marijuana Do you have a plan to hurt others: No Plan service: No Sexual orientation: Straight/Heterosexual Physical Exam ED Vital Signs: Vital Signs - 24 hr 10/28/23 14:46 Temperature 97.3 F Pulse Rate 68 Respiratory Rate 20 Blood Pressure 141/91 H Pulse Oximetry 94 Oxygen Delivery Method Room Air BMI result Body Mass Index 28.7 Const Other: The patient is awake and alert and does not seem in acute distress. HENMT Other: Face is symmetrical, mucous membranes moist. Eyes Other: Pupils are round equal, conjunctivae are clear Neck Other: No neck swelling, moving his neck easily Resp Effort & Inspection: normal respiratory effort Auscultation: clear to auscultation bilaterally Cardio Other: No murmur Rate: regular rate Rhythm: regular rhythm Heart sounds: S1 normal heart sound present and S2 normal heart sound present GI Other: Abdomen is soft and nontender Skin Other: Skin is dry and unremarkable Neuro Other: The patient is awake and alert and oriented. Cranial nerves are intact. He moves his extremities normally. He has normal coordination and normal gait. He is neurologically intact. Extrem Other: No calf swelling or tenderness. Psych Other: The patient appears well groomed. He has a mild intensity to his affect. Medical Decision Making Medical Decision Making MDM Narrative: Patient is a 38-year-old male who returns to the hospital after being discharged from the psychiatric floor earlier this morning. Apparently he there has been a plan for him to go to a longer-term facility and he wanted to get clothes before going to the facility. He therefore was discharged from our psychiatric floor and went to get his stuff from his friend and now returns to the hospital hoping he can resume his original plan. He has tested positive for methadone which he is on, amphetamine (he is on Adderall), fentanyl which he says must be positive from before his recent admission to our psychiatric facility, and marijuana. Patient seems to be medically stable. We will consult the care team. Lab Data 10/28/23 15:23 10/28/23 15:23 Labs: Lab Results 10/28/23 10/28/23 Range/Units 15:20 15:23 WBC 4.3 L (4.8-10.8) X10*3/uL RBC 4.47 L (4.60-5.80) X10*6/uL Hgb 13.8 L (14.0-18.0) g/dl Hct 41.3 L (42.0-52.0) % MCV 92.4 (80.0-98.0) fL MCH 30.9 (27.0-33.0) pg MCHC 33.4 (31.0-36.0) g/dl RDW 14.1 (11.0-16.0) % Plt Count 100 L D (160-400) X10*3/uL MPV 9.5 (9.4-12.4) fL Immature Gran % (Auto) 0.5 H (0.0-0.4) % Neut % (Auto) 51.6 (45-73) % Lymph % (Auto) 34.0 (20-40) % [place] % (Auto) 8.3 (2-11) % Eos % (Auto) 4.4 H (0-4) % Baso % (Auto) 1.2 (0-2) % Lymph # (Auto) 1.5 (1.2-4.9) X10*3/uL [place] # (Auto) 0.4 (0.1-1.2) X10*3/uL Eos # (Auto) 0.2 (0.0-0.4) X10*3/uL Baso # (Auto) 0.1 (0.0-0.2) X10*3/uL Abs Immat Gran (auto) 0.02 (0.00-0.03) X10*3/uL Absolute Neuts (auto) 2.2 (2.0-8.3) x10*3/uL Absolute Nucleated RBC 0.000 (0.0-0.012) X10*3/uL Nucleated RBC % (auto) 0.0 (0.0-0.2) /100WBC Urine Opiates Screen Not Detected (Not Detect) Ur Buprenorphine Scrn Not Detected (Not Detect) ng/mL Ur Oxycodone Screen Not Detected (Not Detect) ng/mL Urine Methadone Screen Positive H (Not Detect) ng/mL Urine Fentanyl Screen POSITIVE H (Not Detect) Ur Barbiturates Screen Not Detected (Not Detect) Ur Phencyclidine Scrn Not Detected (Not Detect) Ur Amphetamines Screen POSITIVE H (Not Detect) U Benzodiazepines Scrn Not Detected (Not Detect) Urine Cocaine Screen Not Detected (Not Detect) U Marijuana (THC) Screen POSITIVE H (Not Detect) Discharge Plan Discharge Clinical Impression: Depression, History of traumatic brain injury Patient Disposition: Still a Patient Prescriptions: No Action methadone 10 mg/5 mL Solution 120 mg PO DAILY Rx Instructions: Confirmed dose by comparing to take away bottle dextroamphetamine-amphetamine [Adderall] 30 mg Tablet 30 mg PO BID Patient Comments: per pharmacy last picked up 30 day supply 09/23/[address]cclellan Rx Instructions: administer doses at least 4-6 hours apart quetiapine 100 mg Tablet 100 mg PO BEDTIME 30 Days Qty: 30 0RF escitalopram oxalate 10 mg Tablet 10 mg PO DAILY 30 Days Qty: 30 0RF Interventions: Davidson-Suicide Risk Severity Scale Last Done: 10/28/23 15:19 Print Language: Nepalese
[2023-10-28 15:54] LABS: Color Urine Yellow
[2023-10-28 15:57] LABS: Ethanol < 10 mg/dL
[2023-10-28 15:59] LABS: Alanine Aminotransferase 32 U/L (0-40); Albumin Level 3.6 g/dL (3.5-5.0); Alkaline Phosphatase 130 U/L (39-117); Anion Gap 11 (12-20); Aspartate Amino Transferase 56 U/L (5-37); Bilirubin Total 0.6 mg/dL (0.0-1.0); Blood Urea Nitrogen 10 mg/dL (9-16); Calcium 9.2 mg/dL (8.4-10.2); Carbon Dioxide 30 mmol/L (22-29); Chloride 108 mmol/L (96-108); Creatinine Clr Calc Pharmacy 175.5; Estimated Glomerular Filt Rate > 60; Glucose Random 79 mg/dL (60-115); Potassium 3.9 mmol/L (3.3-5.1); Sodium 145 mmol/L (135-145); Total Protein 7.9 g/dL (6.5-8.0)
[2023-10-28] MEDS: Amphetamine Mixed Salts 10 MG TABLET 30 MG PO (19:26)
--- NOTE | 2023-10-28 19:33 | PC.NURSE ---
patient appears to be lounging in rear common area eating pb and j
[2023-10-28 21:04] VITALS: BP 145/92; PULSE 74; RESP 16; TEMP 36.8; O2SAT 97
[2023-10-29 06:30] VITALS: BP 139/86; PULSE 61; TEMP 36.1; O2SAT 100
[2023-10-29] MEDS: Amphetamine Mixed Salts 10 MG TABLET 30 MG PO (09:21)
[2023-10-29] MEDS: Escitalopram Oxalate 10 MG TABLET PO (09:21)
[2023-10-29] MEDS: methADONE HCl 20 MG/2 ML ORAL.CONC 120 MG PO (09:22)
--- NOTE | 2023-10-29 13:25 | PHA.MEDREC ---
Pharmacy Consult ? Medication Reconciliation Pharmacy has completed the medication reconciliation. Reviewed med rec done by nursing
[2023-10-29 13:26] VITALS: BP 139/86; PULSE 61; RESP 16; TEMP 36.1; O2SAT 100
--- NOTE | 2023-10-29 14:09 | MHC.CARE ---
CARE Team complete medication transfer to [facility]. Pt was transported via lyft to [facility] .
== END 2023-10-29 13:27 | disposition other institution (70) ==
PROVIDERS: Emergency Medicine; Emergency Provider Emergency Medicine Emergency Medical Services
DX: F33.9 Major depressive disorder, recurrent, unspecified (principal); F14.10 Cocaine abuse, uncomplicated; F43.10 Post-traumatic stress disorder, unspecified; Z87.820 Personal history of traumatic brain injury; F17.210 Nicotine dependence, cigarettes, uncomplicated; F11.20 Opioid dependence, uncomplicated; Z79.899 Other long term (current) drug therapy
CPT/HCPCS: 36415; 80053; 80307; 81003; 85025; 99285; S9485